=== PATIENT | female | born 1960 | race Caucasian/White ===

== ENCOUNTER 2017-05-14 06:31 | Day surgery (SDC) | payer BC ==
[~2017-05-14 06:31] MED LIST: Lactated Ringers 1,000 ML IV SCH; Sodium Chloride 0.9% 10 ML Syringe FLUSH PRN; Sodium Chloride 0.9% 2.5 ML Syringe FLUSH PRN; ceFAZolin 1 GM in Premix Bag 1 BAG IV ONE
[2017-05-14] MEDS ORDERED: Midazolam 1 MG/ML 2 ML SDV ONE ×2 (07:06→08:03)
[2017-05-14] MEDS ORDERED: Propofol 200 MG/20 ML SDV ONE (07:06)
[2017-05-14] MEDS ORDERED: fentaNYL 100 MCG/2 ML SDV ONE ×2 (07:06→07:07)
[2017-05-14] MEDS ORDERED: Ondansetron 4 MG/2 ML SDV ONE (07:11)
--- NOTE | 2017-05-14 07:22 | PCM.PREANE ---
Preanesthetic Assessment - Anesthesia/Transfusion/Family Hx Anesthesia History: Prior Anesthesia Without Reaction Family History of Anesthesia Reaction: No Transfusion History: No Prior Transfusion(s) Intubation History: Unknown - Review of Systems General: No Symptoms Pulmonary: No Symptoms Cardiovascular: No Symptoms Gastrointestinal: No Symptoms Neurological: No Symptoms Other: Reports: None - Physical Assessment O2 Sat by Pulse Oximetry: 100 Respiratory Rate: 16 Vital Signs: Last Vital Signs Temp 36.7 C 05/14/17 06:54 Pulse 68 05/14/17 06:54 Resp 16 05/14/17 06:54 BP 121/79 05/14/17 06:54 Pulse Ox 100 05/14/17 06:54 Height: 1.55 m Weight: 60.781 kg ASA Class: 3 Mental Status: Alert & Oriented x3 Airway Class: Mallampati = 2 Dentition: Reports: Normal Dentition Thyro-Mental Finger Breadths: 3 Mouth Opening Finger Breadths: 3 ROM/Head Extension: Full Lungs: Clear to Auscultation, Normal Respiratory Effort Cardiovascular: Regular Rate, Regular Rhythm - Allergies Allergies/Adverse Reactions: Allergies Allergy/AdvReac Type Severity Reaction Status Date / Time amlodipine Allergy SOB/swellin Verified 05/12/17 11:00 g codeine Allergy SOB/itching Verified 05/12/17 11:00 hydrocodone Allergy SOB/itching Verified 05/12/17 11:00 lisinopril Allergy SOB/swellin Verified 05/12/17 11:00 g oxycodone Allergy SOB/itching Verified 05/12/17 11:00 - Blood Blood Available: No - Anesthesia Plan Pre-Op Medication Ordered: None - Acknowledgements Anesthesia Type Planned: MAC (wants to more asleep than awake) Pt an Appropriate Candidate for the Planned Anesthesia: Yes Alternatives and Risks of Anesthesia Discussed w Pt/Guardian: Yes Pt/Guardian Understands and Agrees with Anesthesia Plan: Yes PreAnesthesia Questionnaire HEENT History: Reports: Other (See Below) Other HEENT History: wears glasses Cardiovascular History: Reports: Blood Clots/VTE/DVT, Hypertension, Other (See Below) Other Cardiovascular History: "blood clot behind rt knee in 2005" Respiratory History: Reports: Other (See Below) (dyspnea) Gastrointestinal History: Reports: Chronic Diarrhea, Other (See Below) Other Gastrointestinal History: "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 access for infusion Hematologic History: Reports: None Immunologic History: Reports: Other (See Below) Other Immunologic History: myasthenia gravis, lupus and sjogren's Oncologic (Cancer) History: Reports: Thyroid, Uterine - Past Surgical History Head Surgeries/Procedures: Reports: None HEENT Surgical History: Reports: Tonsillectomy GI Surgical History: Reports: Appendectomy, Cholecystectomy, Other (See Below) Other GI Surgeries/Procedures: hx exploratory laparotomy Female Surgical History: Reports: Breast Biopsy, Breast Implant, Hysterectomy Other Female Surgeries/Procedures: hysterectomy due to uterine cancer, breast implants removed Endocrine Surgical History: Reports: Thyroidectomy Musculoskeletal Surgical History: Reports: Other (See Below) Other Musculoskeletal Surgeries/Procedures:: hx joint replacement to both thumbs , spinal cord stimulator placement for pelvic pain - SUBSTANCE USE Smoking Status *Q: Never Smoker Recreational Drug Use History: No - HOME MEDS Home Medications: Home Meds Bisoprolol Fumarate/HCTZ [Ziac 2.5-6.25 MG] 1 tab PO BEDTIME 05/12/17 [History] HYDROmorphone [Dilaudid] 2 mg PO ASDIRECTED PRN 05/12/17 [History] Ibuprofen [Advil] 2 - 4 tab PO ASDIRECTED PRN 05/12/17 [History] Immune Globulin (IgG)/Maltose [Octagam 5%] 1 infusion IV ASDIRECTED 05/12/17 [ History] Lansoprazole [Prevacid] 30 mg PO DAILY 05/12/17 [History] Levothyroxine Sodium [Synthroid] 150 mcg PO DAILY 05/12/17 [History] Melatonin 3 mg PO BEDTIME 05/12/17 [History] Meperidine HCl [Demerol] 50 mg PO ASDIRECTED PRN 05/12/17 [History] Mycophenolate Mofetil 3 tab PO BID 05/12/17 [History] Pyridostigmine [place] 2 tab PO ASDIRECTED 05/12/17 [History] Pyridostigmine [place] 60 mg PO BEDTIME 05/12/17 [History] diphenhydrAMINE HCl [Benadryl] 4 tab PO ASDIRECTED 05/12/17 [History] - CURRENT (IN HOUSE) MEDS Current Meds: Current Medications Lactated Ringer's (Ringers, Lactated) 1,000 mls @ 125 mls/hr IV ASDIRECTED FAUSTO Last Admin: 05/14/17 07:12 Dose: 125 mls/hr Sodium Chloride (Saline Flush) 10 ml FLUSH ASDIRECTED PRN PRN Reason: Keep Vein Open Sodium Chloride (Saline Flush) 2.5 ml FLUSH ASDIRECTED PRN PRN Reason: Keep Vein Open Discontinued Medications Fentanyl (Sublimaze) Confirm Administered Dose 100 mcg .ROUTE .STK-MED ONE Stop: 05/14/17 07:07 Fentanyl (Sublimaze) Confirm Administered Dose 100 mcg .ROUTE .STK-MED ONE Stop: 05/14/17 07:08 Cefazolin Sodium/Dextrose 1 gm (/ Premix) 50 mls @ 100 mls/hr IV ONETIME ONE Stop: 05/13/17 14:21 Midazolam HCl (Versed 1 Mg/Ml) Confirm Administered Dose 2 mg .ROUTE .STK-MED ONE Stop: 05/14/17 07:07 Ondansetron HCl (Zofran) Confirm Administered Dose 4 mg .ROUTE .STK-MED ONE Stop: 05/14/17 07:12 Propofol (Diprivan 20 Ml) Confirm Administered Dose 400 mg .ROUTE .STK-MED ONE Stop: 05/14/17 07:07
[2017-05-14] MEDS ORDERED: Lidocaine 1% 20 ML MDV ONE (07:29)
[2017-05-14] MEDS ORDERED: Bupivacaine 0.5% 10 ML SDV ONE ×2 (07:29→07:35)
[2017-05-14] MEDS ORDERED: Heparin Sodium 100 Units/ML 3 ML Syringe ONE ×2 (07:29→07:35)
[2017-05-14] MEDS ORDERED: Iopamidol 408 MG/ML 50 ML SDV ONE (07:30)
[2017-05-14] MEDS ORDERED: diphenhydrAMINE 50 MG/ML SDV ONE (08:08)
[2017-05-14] MEDS ORDERED: ceFAZolin 1 GM Vial ONE (08:13)
[2017-05-14] MEDS ORDERED: fentaNYL 100 MCG/2 ML SDV IVPUSH PRN (08:21)
[2017-05-14] MEDS ORDERED: ePHEDrine 50 MG/ML SDV ONE (08:34)
--- NOTE | 2017-05-14 09:03 | PCM.OPNOTE ---
- General Post-Op/Procedure Note Date of Surgery/Procedure: 05/14/17 Operative Procedure(s): RIJ port a cath Findings: RIJ port a cath placement for vascular access Pre Op Diagnosis: Difficult vascular access Post-Op Diagnosis: same Anesthesia Technique: MAC Primary Surgeon: Cherise Duvall EBL in mLs: 5 Condition: Good
[2017-05-14] MEDS ORDERED: Ketorolac 30 MG/ML SDV IVPUSH ONE (09:50)
--- NOTE | 2017-05-14 10:08 | CR ---
EXAM DATE: 05/14/17 PATIENT'S AGE: 56 Patient: THUAN YOUNG Facility: [place], [place] Site . Site : 1960 Study: XRay Chest [id number]/14/2017 9:46:25 AM Ordering Physician: Eloina Luong Final Report: INDICATION: POST OP PORT A CATH PLACEMENT HISTORY: Port-A-Cath placement. COMPARISON: None. TECHNIQUE: Chest one-view portable. FINDINGS: Right IJ Port-A-Cath, with its tip in the SVC. The heart size and pulmonary vasculature are normal. The lungs are clear. There is no pneumothorax. The central airway is normal. The osseous structures are intact. IMPRESSION: Right IJ Port-A-Cath, with tip in the SVC. No pneumothorax. Dictated by Sai Lee MD @ 05/14/2017 9:50:46 AM Dictated by: Sai Lee MD @ 05/14/2017 09:50:55 (Electronic Signature) Report Signed by Proxy. [facility]
--- NOTE | 2017-05-14 11:08 | OR ---
SURGEON: MAYA ADAMS MD DATE OF PROCEDURE: 05/14/2017 PREOPERATIVE DIAGNOSIS: Difficult venous access. POSTOPERATIVE DIAGNOSIS: Difficult venous access. PROCEDURE PERFORMED: Right internal jugular catheter placement. ANESTHESIA: MAC. FLUIDS: See anesthesia record. ESTIMATED BLOOD LOSS: 5 mL. FINDINGS: Right internal jugular vein Port-A-Cath placement. COMPLICATIONS: None. INDICATIONS: The patient is a 56-year-old female with a history of Graves disease and very difficult venous access. A decision was made to place a Port-A-Cath given that she requires multiple blood draws and infusions. The patient and I discussed the procedure as well as expected perioperative course. We discussed the risks, including bleeding, infection, or damage to surrounding structures, including hemothorax or pneumothorax. The patient verbalized understanding and wished to proceed. PROCEDURE IN DETAIL: The patient was brought into the OR and placed on the operating room table in supine position. A time-out was completed verifying the patient's name, age, date of , allergies, and procedure to be performed. Monitored anesthesia care was induced. A roll was placed under the patient's shoulders and both arms tucked to the patient's side. An ultrasound was brought in the field and used to visualize the vascular anatomy of the right side of the neck. A photograph was taken and placed in the patient's chart. The chest and neck were prepped and draped in the usual standard fashion. The patient was placed in the reverse Trendelenburg position, and I again located the right internal jugular vein using an ultrasound. I anesthetized the area overlying the right internal jugular and the area that the port will be placed with 1% lidocaine plain. At the end of the case, I anesthetized the area again with 0.5% Marcaine plain. Using ultrasound guidance, a finding needle was placed into the right internal jugular vein. A brisk return of venous blood was obtained. A guidewire was then placed down the right IJ and down into the vena cava. C-arm was brought in and placement of the guidewire was confirmed. Using a 15 blade, I made about 3 cm incision 2 fingerbreadths below the lateral right clavicle on the anterior chest wall. Using cautery, I created a subcutaneous pocket. A guide needle was used to tunnel the catheter tubing from the chest wall site up to the needle insertion site on the right side of the neck. A dilator and sheath were used to dilate the vein over the guidewire under fluoroscopic guidance. The catheter tubing was then placed down the vascular sheath and the vascular sheath removed. A C-arm was used to pull the catheter into the superior vena cava at adequate position. These x-rays were saved and placed in the patient's chart. The catheter tubing was aspirated and flushed with injectable saline. Good venous return was obtained. The catheter tubing was then trimmed and the Port-A-Cath device secured to the catheter tubing. The Port-A-Cath was then placed in the subcutaneous pocket and secured to the chest with interrupted 2-0 Prolene sutures. The port was then aspirated and flushed with 3 mL of heparinized saline. The site was then closed with interrupted 3-0 Vicryl in the subcutaneous fat and in a running 4-0 Monocryl stitch in the subcuticular space. The neck insertion site was closed with interrupted 4-0 Monocryl. Steri-Strips and sterile dressings were applied. The patient was taken to the PACU in stable condition. RAMONA RAMIREZ /[id number]
[2017-05-14 11:36] VITALS: BP 113/88
--- NOTE | 2017-05-18 09:45 | CR ---
EXAMINATION: Chest HISTORY: Port-A-Cath placement COMPARISON: Same day TECHNIQUE: Single fluoroscopic view FINDINGS/IMPRESSION: Operative control film demonstrates the tip of the kathryn catheter projecting ove r the SVC.
== END 2017-05-14 10:40 | disposition home or self-care (01) ==
LOC: MW.SDS 06:31
PROVIDERS: ATTEND Surgery
DX: E05.00 Thyrotoxicosis with diffuse goiter without thyrotoxic crisis or storm (principal); M19.90 Unspecified osteoarthritis, unspecified site; I10 Essential (primary) hypertension; E03.9 Hypothyroidism, unspecified; G43.909 Migraine, unspecified, not intractable, without status migrainosus; Z88.8 Allergy status to other drugs, medicaments and biological substances; Z88.5 Allergy status to narcotic agent; Z88.6 Allergy status to analgesic agent; Z79.899 Other long term (current) drug therapy; Z79.1 Long term (current) use of non-steroidal anti-inflammatories (NSAID); Z90.49 Acquired absence of other specified parts of digestive tract; Z98.890 Other specified postprocedural states; Z90.89 Acquired absence of other organs
CPT/HCPCS: 36561; 71010; 76000; C1788; J0690; J1200; J1642; J1885; J2250; J2405; J3010; J7120; 00532; J2704; Q9966

== ENCOUNTER 2021-08-08 07:18 | Day surgery (SDC) | payer OTHER ==
[~2021-08-08 07:18] MED LIST changes: +Sodium Chloride 0.9% 20 ML SDV IV PRN; -ceFAZolin 1 GM in Premix Bag 1 BAG IV ONE
[2021-08-08] MEDS ORDERED: Propofol 200 MG/20 ML SDV ONE ×2 (07:31→09:21)
[2021-08-08] MEDS ORDERED: fentaNYL 100 MCG/2 ML SDV ONE ×2 (07:32→09:09)
[2021-08-08 13:03] VITALS: BP 110/54; PULSE 89
== END 2021-08-08 11:40 | disposition home or self-care (01) ==
LOC: MW.SDS 07:18
PROVIDERS: ATTEND Surgery
DX: K51.40 Inflammatory polyps of colon without complications (principal); K64.3 Fourth degree hemorrhoids; K76.89 Other specified diseases of liver; I10 Essential (primary) hypertension; E03.9 Hypothyroidism, unspecified; G43.909 Migraine, unspecified, not intractable, without status migrainosus; Z88.8 Allergy status to other drugs, medicaments and biological substances; Z88.5 Allergy status to narcotic agent; Z79.82 Long term (current) use of aspirin; Z79.899 Other long term (current) drug therapy; Z98.890 Other specified postprocedural states
CPT/HCPCS: 00811; J1642; J2704; J3010; J7120